=== PATIENT | female | born 1960 | race African-American/Black ===

== ENCOUNTER 2016-10-25 21:19 | Emergency (ER) | payer MEDICAID, OTHER ==
[~2016-10-25] VITALS: Ht 165.1 cm; Wt 131.1 kg
[~2016-10-25 21:19] MED LIST: CLON0.2T12; FERR325T47; GABA-494; HYDR-2551; IBUP800T24; LISI-646 OR; METO-291
[2016-10-25 21:53] LABS: Basophils # (auto) 0.1 uL; Eosinophils # (auto) 0.1 uL; Hemoglobin 14.7 g/dL (12.2-16.2); Lymphocytes # (auto) 2.2 uL; Lymphocytes % (auto) 24.9 % (10.0-50.0); Mean Corpuscular Hemoglobin 29.1 pg (28.0-32.0); Mean Corpuscular Hgb Conc. 33.4 g/dL (32.0-36.0); Mean Platelet Volume 8.6 fL (7.4-10.4); Monocytes # (auto) 0.8 uL; Monocytes % (auto) 8.6 % (0.0-12.0); Neutrophils # (auto) 5.7 uL; Neutrophils % (auto) 64.5 % (37.0-80.0); Nucleated Red Blood Cells % 2.9 %; Platelet Count (auto) 257 10^3/uL (140-450); Red Cell Distribution Width 15.1 % (11.6-16.0); White Blood Cell 8.9 10^3/uL (4.4-10.8)
[2016-10-25 22:12] LABS: Albumin 3.8 g/dL (3.4-5.0); Anion Gap 10 (5-15); Aspartate Aminotransferase 18 U/L (15-37); BUN/Creatinine Ratio 19.2; Blood Urea Nitrogen 19 mg/dL (7-18); Calcium 8.2 mg/dL (8.5-10.1); Carbon Dioxide 27 mmol/L (21-32); Chloride 108 mmol/L (98-107); GFR African American 75 mL/min; GFR Non-African American 62 mL/min; Glucose 203 mg/dL (74-106); Potassium 3.1 mmol/L (3.5-5.1); Sodium 145 mmol/L (136-145)
[2016-10-25 22:17] LABS: Alkaline Phosphatase 107 U/L (45-117); Bilirubin, Total 0.4 mg/dL (0.2-1.0); Total Protein 7.6 g/dL (6.4-8.2)
[2016-10-26 03:53] VITALS: BP 144/75
== END 2016-10-26 04:25 | disposition home or self-care (01) ==
LOC: ER 21:30
DX: I10 Essential (primary) hypertension (principal); E11.9 Type 2 diabetes mellitus without complications; E78.5 Hyperlipidemia, unspecified; Z88.0 Allergy status to penicillin; Z88.1 Allergy status to other antibiotic agents
CPT/HCPCS: 36415; 80053; 84484; 85025; 93005

== ENCOUNTER 2018-01-31 08:22 | Inpatient (IN) | payer MEDICAID ==
[~2018-01-31] VITALS: Ht 165.1 cm; Wt 122.0 kg
[~2018-01-31 08:22] MED LIST changes: -GABA-494; +GABA100C9; -METO-291; +METO1TAB9
[2018-01-31] MEDS ORDERED: FUROSEMIDE 40 MG/4 ML VIAL IV ONE (09:45)
[2018-01-31 10:07] LABS: Basophils # (auto) 0 uL; Basophils % (auto) 0.3 % (0.0-2.0); Eosinophils # (auto) 0 uL; Eosinophils % (auto) 0.6 % (0.0-7.0); Hematocrit 46.1 % (36.0-46.0); Hemoglobin 15.5 g/dL (12.2-16.2); Lymphocytes # (auto) 1.7 uL; Lymphocytes % (auto) 24.2 % (10.0-50.0); Mean Corpuscular Hemoglobin 30.6 pg (28.0-32.0); Mean Corpuscular Hgb Conc. 33.7 g/dL (32.0-36.0); Mean Corpuscular Volume 90.8 fL (80.0-100.0); Monocytes # (auto) 0.7 uL; Monocytes % (auto) 9.6 % (0.0-12.0); Neutrophils # (auto) 4.5 uL; Neutrophils % (auto) 65.3 % (37.0-80.0); Nucleated Red Blood Cells % 0.1 %; Platelet Count (auto) 209 10^3/uL (140-450); Red Blood Cells 5.08 10^6/uL (4.0-5.20); Red Cell Distribution Width 14.3 % (11.8-14.3); White Blood Cell 6.9 10^3/uL (4.4-10.8)
[2018-01-31 10:29] LABS: Alanine Aminotransferase 30 U/L (13-56); Albumin 3.9 g/dL (3.4-5.0); Alkaline Phosphatase 94 U/L (45-117); Anion Gap 13 (5-15); Aspartate Aminotransferase 20 U/L (15-37); Bilirubin, Total 0.4 mg/dL (0.2-1.0); Blood Urea Nitrogen 8 mg/dL (7-18); Calcium 7.6 mg/dL (8.5-10.1); Carbon Dioxide 25 mmol/L (21-32); Chloride 103 mmol/L (98-107); GFR African American 95 mL/min; GFR Non-African American 79 mL/min; Glucose 253 mg/dL (74-106); Sodium 141 mmol/L (136-145); Total Protein 8.6 g/dL (6.4-8.2)
[2018-01-31 10:32] LABS: Potassium 2.9 mmol/L (3.5-5.1)
[2018-01-31 10:32] LABS: Urine Bacteria FEW /hpf (None Seen); Urine Blood Negative /uL (Negative); Urine WBC 2 /hpf (0 - 5)
[2018-01-31] MEDS ORDERED: POTASSIUM CHL 20MEQ/100ML 100 ML IV ONE (11:15)
[2018-01-31] MEDS ORDERED: LEVOFLOXACIN 500MG 100 ML IV ONE (13:00)
[2018-01-31] MEDS ORDERED: DEXTROSE (50%) 50ML SYRG IV PRN (13:00)
[2018-01-31] MEDS ORDERED: cloNIDine HCL 0.1 MG TAB PO PRN (13:00)
[2018-01-31] MEDS ORDERED: IOHEXOL 350 MG/ML 100ML IJ ONE (13:02)
[2018-01-31] MEDS ORDERED: NIFEdipine ER 30 MG TAB PO ONE (13:15)
[2018-01-31] MEDS ORDERED: TEMAZEPAM 15 MG CAP PO PRN (13:15)
[2018-01-31] MEDS ORDERED: METOPROLOL SUCCINATE XL 50 MG TAB PO ONE (13:15)
[2018-01-31] MEDS ORDERED: DOCUSATE SOD 100 MG CAP PO PRN (13:15)
[2018-01-31] MEDS ORDERED: ACETAMINOPHEN 325 MG TAB PO PRN (13:15)
[2018-01-31] MEDS ORDERED: HCTZ 25 MG TAB PO ONE (13:15)
[2018-01-31] MEDS ORDERED: MORPHINE SULF INJ 2 MG/ML SYRINGE 1ML IV PRN ×2 (13:15)
[2018-01-31] MEDS ORDERED: ONDANSETRON HCL 4 MG/2 ML VIAL IV PRN (13:15)
[2018-01-31] MEDS ORDERED: HYDROcodone-ACET 5/325MG TAB PO PRN (13:15)
[2018-01-31] MEDS ORDERED: LISINOPRIL 20 MG TAB PO ONE (13:15)
[2018-01-31] MEDS ORDERED: MAGNESIUM OXIDE 400 MG TAB PO ONE (13:15)
[2018-01-31] MEDS ORDERED: NITROGLYCERIN 0.4 MG SL TAB SL PRN (13:15)
[2018-01-31] MEDS ORDERED: POTASSIUM CHL 10 Meq TABLET PO ONE (13:30)
[2018-01-31] MEDS: SODIUM CHLOR 0.9% PF (SALINE LOCK) 10ML VIAL/SYR IV SCH ×2 (14:00→22:17)
[2018-01-31] MEDS: cloNIDine HCL 0.1 MG TAB PO SCH ×2 (14:00→22:17)
[2018-01-31] MEDS: InsuLIN REG 1unit/0.01ml Soln (100units/ml) SC SCH ×2 (17:00→22:28)
[2018-01-31] MEDS: ACCU-CHEK COMFORT CURVE STRIP VI SCH ×2 (17:00→22:27)
[2018-01-31] MEDS: FERROUS SULFATE 325 MG TAB PO SCH (18:23)
[2018-01-31 18:34] VITALS: BP_SYST 129; BP_DIAS 65; BP_DIAS 69
[2018-01-31 21:57] VITALS: BP 141/77
[2018-01-31] MEDS: NITROFURANTOIN (MONO) 100 mg CAP PO SCH (22:18)
[2018-01-31] MEDS: ATORVASTATIN 20 MG TAB PO SCH (22:18)
[2018-02-01 05:00] VITALS: BP 120/57
[2018-02-01] MEDS: SODIUM CHLOR 0.9% PF (SALINE LOCK) 10ML VIAL/SYR IV SCH ×3 (06:21→22:18)
[2018-02-01] MEDS: cloNIDine HCL 0.1 MG TAB PO SCH ×3 (06:23→22:00)
[2018-02-01] MEDS: ACCU-CHEK COMFORT CURVE STRIP VI SCH ×4 (06:52→22:20)
[2018-02-01] MEDS: InsuLIN REG 1unit/0.01ml Soln (100units/ml) SC SCH ×4 (06:52→22:20)
[2018-02-01 07:53] LABS: Basophils # (auto) 0 uL; Basophils % (auto) 0.3 % (0.0-2.0); Eosinophils # (auto) 0 uL; Eosinophils % (auto) 0.5 % (0.0-7.0); Hemoglobin 14.4 g/dL (12.2-16.2); Lymphocytes # (auto) 2.3 uL; Mean Corpuscular Hemoglobin 30.7 pg (28.0-32.0); Mean Corpuscular Hgb Conc. 34.2 g/dL (32.0-36.0); Mean Corpuscular Volume 89.6 fL (80.0-100.0); Monocytes # (auto) 0.7 uL; Monocytes % (auto) 9.7 % (0.0-12.0); Neutrophils # (auto) 4.6 uL; Neutrophils % (auto) 59.5 % (37.0-80.0); Nucleated Red Blood Cells % 0.1 %; Platelet Count (auto) 222 10^3/uL (140-450); Red Blood Cells 4.69 10^6/uL (4.0-5.20); Red Cell Distribution Width 14.3 % (11.8-14.3); White Blood Cell 7.7 10^3/uL (4.4-10.8)
[2018-02-01 08:12] LABS: Albumin 3.4 g/dL (3.4-5.0); BUN/Creatinine Ratio 7.5; Bilirubin, Total 0.5 mg/dL (0.2-1.0); Calcium 7.2 mg/dL (8.5-10.1); Total Protein 7.7 g/dL (6.4-8.2)
[2018-02-01 08:15] LABS: Potassium 2.7 mmol/L (3.5-5.1)
[2018-02-01] MEDS ORDERED: POTASSIUM CHL 20 Meq TABLET PO ONE (08:30)
[2018-02-01] MEDS: FERROUS SULFATE 325 MG TAB PO SCH ×2 (08:47→17:25)
[2018-02-01 09:00] VITALS: BP 100/54
[2018-02-01] MEDS: POTASSIUM CHL 10 Meq TABLET PO SCH (09:38)
[2018-02-01] MEDS: MULTIPLE VITAMIN TAB PO SCH (09:39)
[2018-02-01] MEDS: NITROFURANTOIN (MONO) 100 mg CAP PO SCH ×2 (09:39→22:20)
[2018-02-01] MEDS: MAGNESIUM OXIDE 400 MG TAB PO SCH (09:39)
[2018-02-01] MEDS: LISINOPRIL 20 MG TAB PO SCH (10:00)
[2018-02-01] MEDS ORDERED: LEVOFLOXACIN 500MG 100 ML IV SCH (10:00)
[2018-02-01] MEDS: METOPROLOL SUCCINATE XL 50 MG TAB PO SCH (10:00)
[2018-02-01] MEDS: HCTZ 25 MG TAB PO SCH (10:00)
[2018-02-01] MEDS: NIFEdipine ER 30 MG TAB PO SCH (10:00)
[2018-02-01 13:00] VITALS: BP 110/55
[2018-02-01] MEDS: POTASSIUM CHL 20MEQ/100ML 100 ML IV SCH ×2 (15:53→20:05)
[2018-02-01 17:00] VITALS: BP 119/65
[2018-02-01] MEDS ORDERED: POTASSIUM CHL 20MEQ/100ML 100 ML IV ONE (19:55)
[2018-02-01 22:00] VITALS: BP_SYST 117; BP_SYST 126; BP_DIAS 102; BP_DIAS 57
[2018-02-01] MEDS: ATORVASTATIN 20 MG TAB PO SCH (22:19)
[2018-02-02] VITALS (7 sets, daily range): BP systolic 111–150; BP diastolic 58–79
[2018-02-02] MEDS: SODIUM CHLOR 0.9% PF (SALINE LOCK) 10ML VIAL/SYR IV SCH ×3 (05:36→21:31)
[2018-02-02] MEDS: cloNIDine HCL 0.1 MG TAB PO SCH ×3 (05:37→21:25)
[2018-02-02 05:54] LABS: BUN/Creatinine Ratio 18.1; Magnesium 2.3 mg/dL (1.6-2.6); Potassium 3.2 mmol/L (3.5-5.1)
[2018-02-02] MEDS: InsuLIN REG 1unit/0.01ml Soln (100units/ml) SC SCH ×4 (06:43→21:31)
[2018-02-02] MEDS: ACCU-CHEK COMFORT CURVE STRIP VI SCH ×4 (06:43→21:25)
[2018-02-02] MEDS: MULTIPLE VITAMIN TAB PO SCH (08:58)
[2018-02-02] MEDS: POTASSIUM CHL 10 Meq TABLET PO SCH (08:59)
[2018-02-02] MEDS: MAGNESIUM OXIDE 400 MG TAB PO SCH (08:59)
[2018-02-02] MEDS: NITROFURANTOIN (MONO) 100 mg CAP PO SCH ×2 (09:00→21:24)
[2018-02-02] MEDS: FERROUS SULFATE 325 MG TAB PO SCH (09:00)
[2018-02-02] MEDS: HCTZ 25 MG TAB PO SCH (09:02)
[2018-02-02] MEDS: METOPROLOL SUCCINATE XL 50 MG TAB PO SCH (09:02)
[2018-02-02] MEDS: LISINOPRIL 20 MG TAB PO SCH (09:04)
[2018-02-02] MEDS: NIFEdipine ER 30 MG TAB PO SCH (09:06)
[2018-02-02] MEDS ORDERED: POTASSIUM CHL 20 Meq TABLET PO ONE (10:15)
[2018-02-02] MEDS: POTASSIUM CHL 20MEQ/100ML 100 ML IV SCH ×2 (12:16→14:07)
[2018-02-02] MEDS: ATORVASTATIN 20 MG TAB PO SCH (21:25)
[2018-02-03 05:39] VITALS: BP 136/70
[2018-02-03 06:11] LABS: BUN/Creatinine Ratio 13.9; Calcium 8.2 mg/dL (8.5-10.1); Potassium 3.6 mmol/L (3.5-5.1)
[2018-02-03] MEDS: cloNIDine HCL 0.1 MG TAB PO SCH (06:26)
[2018-02-03] MEDS: ACCU-CHEK COMFORT CURVE STRIP VI SCH ×2 (06:27→12:23)
[2018-02-03] MEDS: SODIUM CHLOR 0.9% PF (SALINE LOCK) 10ML VIAL/SYR IV SCH (06:27)
[2018-02-03] MEDS: InsuLIN REG 1unit/0.01ml Soln (100units/ml) SC SCH ×2 (06:30→12:23)
[2018-02-03 08:50] VITALS: BP 144/71
[2018-02-03] MEDS: METOPROLOL SUCCINATE XL 50 MG TAB PO SCH (10:00)
[2018-02-03] MEDS ORDERED: LISINOPRIL 20 MG TAB PO SCH (10:00)
[2018-02-03] MEDS: HCTZ 25 MG TAB PO SCH (10:13)
[2018-02-03] MEDS: POTASSIUM CHL 10 Meq TABLET PO SCH (10:13)
[2018-02-03] MEDS: MULTIPLE VITAMIN TAB PO SCH (10:17)
[2018-02-03] MEDS: MAGNESIUM OXIDE 400 MG TAB PO SCH (10:18)
[2018-02-03] MEDS: NITROFURANTOIN (MONO) 100 mg CAP PO SCH (10:18)
[2018-02-03 11:50] VITALS: BP 144/71
[2018-02-03 13:00] VITALS: BP 143/75
== END 2018-02-03 15:58 | disposition home or self-care (01) | DRG 194 ==
LOC: ER 08:22 → TELE 08:23 → TELE-WESTW 18:38
PROVIDERS: ADMIT Internal Medicine; ATTEND Internal Medicine
DX: I11.0 Hypertensive heart disease with heart failure (principal); E66.01 Morbid (severe) obesity due to excess calories; D63.8 Anemia in other chronic diseases classified elsewhere; E11.9 Type 2 diabetes mellitus without complications; E78.5 Hyperlipidemia, unspecified; E87.6 Hypokalemia; I50.43 Acute on chronic combined systolic (congestive) and diastolic (congestive) heart failure; Z82.49 Family history of ischemic heart disease and other diseases of the circulatory system; Z83.3 Family history of diabetes mellitus; Z85.41 Personal history of malignant neoplasm of cervix uteri; Z68.41 Body mass index [BMI] 40.0-44.9, adult
CPT/HCPCS: 36415; 71046; 71275; 80048; 80053; 81001; 82962; 83036; 83735; 83880; 84443; 84484; 85025; 87086; 93005; 93306; 96365; 96375; A6257; J1815; J3480

== ENCOUNTER 2018-08-23 12:28 | Emergency (ER) | payer MEDICAID ==
[~2018-08-23] VITALS: Ht 165.1 cm; Wt 108.9 kg
[2018-08-23 13:48] LABS: Basophils # (auto) 0.1 uL; Eosinophils # (auto) 0 uL; Eosinophils % (auto) 0.4 % (0.0-7.0); Hematocrit 49.3 % (36.0-46.0); Hemoglobin 16.3 g/dL (12.2-16.2); Lymphocytes # (auto) 2.7 uL; Lymphocytes % (auto) 25.4 % (10.0-50.0); Mean Corpuscular Hemoglobin 29.9 pg (28.0-32.0); Mean Corpuscular Volume 90.8 fL (80.0-100.0); Monocytes # (auto) 0.3 uL; Neutrophils # (auto) 7.5 uL; Neutrophils % (auto) 70.2 % (37.0-80.0); Nucleated Red Blood Cells % 0.2 %; Platelet Count (auto) 281 10^3/uL (140-450); Red Blood Cells 5.43 10^6/uL (4.0-5.20); Red Cell Distribution Width 14.2 % (11.8-14.3); White Blood Cell 10.7 10^3/uL (4.4-10.8)
[2018-08-23 14:18] LABS: Albumin 3.3 g/dL (3.4-5.0); BUN/Creatinine Ratio 15.6; Calcium 8.3 mg/dL (8.5-10.1)
[2018-08-23 14:20] LABS: Bilirubin, Total 0.3 mg/dL (0.2-1.0); Total Protein 7.2 g/dL (6.4-8.2)
[2018-08-23 14:26] LABS: Potassium 2.9 mmol/L (3.5-5.1)
[2018-08-23 18:59] LABS: Magnesium 1.8 mg/dL (1.6-2.6)
[2018-08-23 19:07] LABS: INR 1.01 (0.9-1.15); Partial Thromboplastin Time 23.3 sec (23.78-33.04); Prothrombin Time 10.8 sec (9.27-12.13)
[2018-08-23] MEDS ORDERED: POTASSIUM CHL 20 Meq TABLET PO ONE (19:15)
[2018-08-23] MEDS ORDERED: POTASSIUM CHL 20MEQ/100ML 100 ML IV ONE (19:15)
[2018-08-23 21:35] LABS: Urine Bacteria FEW /hpf (None Seen); Urine Blood 2+ /uL (Negative); Urine Hyaline Cast MOD /lpf (0 - 2); Urine Mucus FEW (None Seen); Urine Specific Gravity 1.019 (1.001-1.035); Urine WBC 3 /hpf (0 - 5)
[2018-08-24 02:40] LABS: BUN/Creatinine Ratio 15.8; Calcium 7.9 mg/dL (8.5-10.1); Potassium 3.7 mmol/L (3.5-5.1)
[2018-08-24 03:00] VITALS: BP 125/73
== END 2018-08-24 04:15 | disposition home or self-care (01) ==
LOC: EDBD 12:28 → ER 12:28
DX: E87.6 Hypokalemia (principal); F44.9 Dissociative and conversion disorder, unspecified; I12.9 Hypertensive chronic kidney disease with stage 1 through stage 4 chronic kidney disease, or unspecified chronic kidney disease; E11.22 Type 2 diabetes mellitus with diabetic chronic kidney disease; N18.9 Chronic kidney disease, unspecified; F41.9 Anxiety disorder, unspecified; Z88.1 Allergy status to other antibiotic agents; Z88.0 Allergy status to penicillin
CPT/HCPCS: 36415; 70450; 71045; 80048; 80053; 81001; 82962; 83735; 83880; 84443; 84484; 85025; 85610; 85730; 94761; 96365; 96366; 99284; J3480

== ENCOUNTER 2018-11-24 00:02 | Emergency (ER) | payer MEDICAID ==
[~2018-11-24] VITALS: Ht 165.1 cm; Wt 127.0 kg
[2018-11-24 01:08] LABS: Basophils # (auto) 0 uL; Basophils % (auto) 0.5 % (0.0-2.0); Eosinophils # (auto) 0.1 uL; Eosinophils % (auto) 1.7 % (0.0-7.0); Hematocrit 43.4 % (36.0-46.0); Hemoglobin 14.4 g/dL (12.2-16.2); Lymphocytes # (auto) 2.2 uL; Mean Corpuscular Hemoglobin 30.1 pg (28.0-32.0); Mean Corpuscular Hgb Conc. 33.2 g/dL (32.0-36.0); Mean Corpuscular Volume 90.5 fL (80.0-100.0); Monocytes # (auto) 0.9 uL; Neutrophils # (auto) 4.7 uL; Neutrophils % (auto) 58.8 % (37.0-80.0); Nucleated Red Blood Cells % 0.1 %; Platelet Count (auto) 257 10^3/uL (140-450); Red Cell Distribution Width 14.6 % (11.8-14.3)
[2018-11-24 01:27] LABS: Alanine Aminotransferase 28 U/L (13-56); Albumin 3.8 g/dL (3.4-5.0); Anion Gap 14 (5-15); Aspartate Aminotransferase 20 U/L (15-37); BUN/Creatinine Ratio 13.3; Blood Alcohol < 3.0 mg/dL (0-5); Blood Urea Nitrogen 19 mg/dL (7-18); Calcium 8.8 mg/dL (8.5-10.1); Carbon Dioxide 23 mmol/L (21-32); Chloride 108 mmol/L (98-107); GFR African American 49 mL/min; GFR Non-African American 40 mL/min; Glucose 149 mg/dL (74-106); Magnesium 1.9 mg/dL (1.6-2.6); Potassium 3.4 mmol/L (3.5-5.1); Salicylate < 1.7 mg/dL (2.8-20.0); Sodium 145 mmol/L (136-145)
[2018-11-24 01:29] LABS: Acetaminophen < 2.0 ug/mL (10-30); Alkaline Phosphatase 73 U/L (45-117); Bilirubin, Total 0.4 mg/dL (0.2-1.0); Total Protein 8.1 g/dL (6.4-8.2)
[2018-11-24 02:15] LABS: Alcohol, Urine < 3.0 mg/dL (0-5); Amphetamine Screen, Urine NEGATIVE (NEGATIVE); Barbiturate Scree,Urine NEGATIVE (NEGATIVE); Benzodiazephine Screen, Urine NEGATIVE (NEGATIVE); Cannabinoid Screen, Urine NEGATIVE (NEGATIVE); Cocaine Screen, Urine NEGATIVE (NEGATIVE); Opiate Scree,Urine NEGATIVE (NEGATIVE); Phencyclidine Screen, Urine NEGATIVE (NEGATIVE)
[2018-11-24 02:36] LABS: Urine Bacteria FEW /hpf (None Seen); Urine Blood 3+ /uL (Negative); Urine Specific Gravity 1.014 (1.001-1.035); Urine WBC 258 /hpf (0 - 5)
[2018-11-24 03:01] VITALS: BP 125/79
== END 2018-11-24 03:38 | disposition home or self-care (01) ==
LOC: ER 00:02
DX: T45.0X1A Poisoning by antiallergic and antiemetic drugs, accidental (unintentional), initial encounter (principal); N39.0 Urinary tract infection, site not specified; H10.33 Unspecified acute conjunctivitis, bilateral; Z79.899 Other long term (current) drug therapy; E11.9 Type 2 diabetes mellitus without complications; E78.5 Hyperlipidemia, unspecified; I10 Essential (primary) hypertension; Z88.1 Allergy status to other antibiotic agents; Z88.0 Allergy status to penicillin; Y92.89 Other specified places as the place of occurrence of the external cause
CPT/HCPCS: 36415; 80053; 80307; 80320; 80329; 81001; 83735; 84702; 85025; 93005